=== PATIENT | female | born 1935 | race Caucasian/White ===

== ENCOUNTER 2017-02-26 19:57 | Inpatient (IN) ==
[2017-02-26] MEDS ORDERED: NS 2,000 ML ONE (20:16)
[2017-02-26] MEDS ORDERED: MOTRIN PO ONE (20:16)
[2017-02-26] MEDS ORDERED: MOTRIN ONE (20:16)
[2017-02-26] MEDS ORDERED: MOTRIN LIQUID ONE (20:22)
[2017-02-26] MEDS ORDERED: NS 500 ML IV ONE (20:25)
[2017-02-26] MEDS ORDERED: NS 1,000 ML IV ONE (20:25)
[2017-02-26] MEDS: NS 1,000 ML IV ONE (20:25)
[2017-02-26] MEDS ORDERED: ZOSYN 3.375 GM/NS 3.375 GM/50 ML IVPB IV ONE (20:25)
[2017-02-26 20:49] LABS: BASO% 0.3 % (0.0-0.8); EOS# 0.01 X1000 (0.0-0.7); EOS% 0.3 % (0.0-10.0); HEMATOCRIT 39.3 % (37.0-47.0); HEMOGLOBIN 13.2 g/dL (12.0-16.0); IMM GRAN# 0.03 X1000 (0.0-0.04); IMM GRAN% 0.8 % (0.0-0.5); LYMPH# 0.14 X1000 (1.2-3.4); LYMPH% 3.9 % (20.5-51.1); MANUAL DIFF NEEDED? YES; MCH 31.9 PG (27-31); MCHC 33.6 g/dL (33-37); MCV 94.9 FL (81-99); MONO# 0.01 X1000 (0.11-0.59); MONO% 0.3 % (1.7-9.3); MPV 9.9 FL (7.4-10.4); NEUT% 94.4 % (42.2-75.2); PLT 175 X1000 (130-400); RBC 4.14 XMIL (4.2-5.4)
[2017-02-26 20:50] LABS: LYMPHS 3 % (21-51); MONO 1 % (1-9)
[2017-02-26 20:58] LABS: AGAP 13; ALBUMIN 3.7 g/dL (3.5-5.0); ALKALINE PHOSPHATASE 79 U/L (32-104); BUN 20 mg/dL (8-22); CALCIUM 9.6 mg/dL (8.8-10.2); CHLORIDE 100 mmol/L (98-107); CK PROFILE 90 U/L (24-173); COSMO 282; GOT 27 U/L (10-30); GPT 19 U/L (10-36); POTASSIUM 3.2 mmol/L (3.5-5.1); SODIUM 137 mmol/L (136-145); TCO2 24 mmol/L (25-35); TOTAL PROTEIN 6.4 g/dL (6.3-8.3)
--- NOTE | 2017-02-26 21:00 | EKG Report ---
Test Performed on : 02/26/2017 8:40:55 PM Test Reason : CP Blood Pressure : / mmHG Vent. Rate : 108 BPM Atrial Rate : 108 BPM P-R Int : 160 ms QRS Dur : 070 ms QT Int : 310 ms P-R-T Axes : 078 049 064 degrees QTc Int : 415 ms Sinus tachycardia. with premature atrial complexes. Possible Left atrial enlargement Borderline ECG No previous ECGs available Unconfirmed Result
[2017-02-26] MEDS ORDERED: VANCOMYCIN 1 GM/NS 1 GM/250 ML IVPB IV ONE (21:02)
[2017-02-26 21:09] LABS: INR 0.99 (0.86-1.15); PROTIME 13.9 Seconds (12.1-15.5)
[2017-02-26 21:10] LABS: PTT PL 25.2 Seconds (22.6-43.9)
--- NOTE | 2017-02-26 21:20 | Diag Imaging Result Doc PS360 ---
EXAM: CHEST-1 VIEW - 02/26/2017 HISTORY: fever TECHNIQUE: Portable chest 8:36 PM COMPARISON: None. FINDINGS: Heart size appears upper normal. There is apparent mild infrahilar infiltrate on the left. The remainder lungs appear clear. There is no substantial pleural effusion or pneumothorax identified. IMPRESSION: Apparent mild infrahilar infiltrate on the left. Bronchopneumonia cannot be excluded. Electronically signed by Cyrus Oneill 02/26/2017 9:18 PM
--- NOTE | 2017-02-26 21:21 | PROVIDER DOCUMENTATION ---
This chart was entered by Mayra Petty Scribe, acting as scribe for Nasir Asencio MD. HPI-General Adult - General Chief Complaint: Weakness Stated Complaint: weakness Time Seen by Provider: 02/26/17 20:08 Source: family, RN/MD, EMS Allergies/Adverse Reactions: Patient Allergies Allergy/AdvReac Type Severity Reaction Status Date / Time Unable to Assess Allergy Verified 02/26/17 20:02 Home Medications: Home Medication List Medication Instructions Recorded Confirmed Last Taken Type NK [No Home Medications] 02/26/17 02/26/17 Unknown History - History of Present Illness -Gen Adult Nature of Presenting Problems: 81 Y/O F presents to ER by EMS with the complain of feeling weak. pt has Hx of Dementia and MS. pt was unable to standup at home after being the restroom. pt has fever and diarrhea. Location of Pain/Injury: reports: other (whole body weakness) Onset/Duration: reports: just prior to arrival Timing: reports: still present Associated Symptoms: reports: diarrhea, fever/chills, weakness Review of Systems - Adult - REVIEW OF SYSTEMS - ADULT Constitutional: reports: fever, other (generalized body weakness). denies: chills Eyes: reports: no symptoms reported Ears, Nose, Mouth & Throat: reports: no symptoms reported Cardiovascular: reports: no symptoms reported Respiratory: reports: no symptoms reported Gastrointestinal: reports: diarrhea. denies: nausea, vomiting Genitourinary: reports: no symptoms reported Musculoskeletal: reports: see HPI, other (generalized body weakness) Integumentary: reports: no symptoms reported Neurological: reports: no symptoms reported Psychiatric: reports: no symptoms reported Endocrine: reports: no symptoms reported Hematologic/Lymphatic: reports: no symptoms reported Allergic/Immunologic: reports: no symptoms reported All Other Systems: Reviewed and Negative Past History - Adult - PAST MEDICAL HISTORY-ADULT Review of Records: reports: Old Records Reviewed, Nursing Assessment Review, Medications Reviewed, Social history reviewed & non-contributory. Major Childhood Illnesses: reports: denies history Neurological: reports: dementia, Multiple Sclerosis - IMMUNIZATION STATUS Childhood Immunizations: See Nurse Assessment Flu Vaccine: See Nurse Assessment Physical Exam-General - PHYSICAL EXAM-ADULT Initial Vital Signs Reviewed: Yes - CONSTITUTIONAL General Appearance: mild distress, lethargic - EYES Eyes: PERRL/EOMI, pink conjunctivae - HEAD, EARS, NOSE, MOUTH & THROAT HENMT: normal ENT inspection, other (dry mucus memberanes) - NECK Neck: non-tender, full range of motion, supple - RESPIRATORY Respiratory: chest non-tender, lungs clear, normal breath sounds - CARDIOVASCULAR Cardiovascular: no edema, no gallop, tachycardia - GASTROINTESTINAL (ABDOMEN) Abdominal Exam: normal bowel sounds, non tender, soft - MUSCULOSKELETAL Back Exam: normal inspection, no CVA tenderness, no vertebral tenderness Extremity: swelling (bilat ankles). negative: no calf tenderness - SKIN Integumentary: normal color, normal turgor, warm/dry - NEUROLOGIC Neurologic: grossly normal, no motor/sensory deficits - PSYCHIATRIC Psych/Mental Status: normal mood/affect, oriented x 3 Progress - PLAN OF CARE/RESULTS Progress/Plan/Lab Results: Vital Signs - 8 hr 02/26/17 19:57 02/26/17 20:02 Temperature 103.7 F H Pulse Rate 117 H Respiratory Rate 16 25 H Blood Pressure 110/53 O2 Sat by Pulse Oximetry 91 L Orders Category Date Time Status Cardiac Monitoring DIRECTED Care 02/26/17 20:11 Active Arana Cath Insertion ORDERED Care 02/26/17 20:23 Active IV Insertion ORDERED Care 02/26/17 20:11 Active Intake and Output-Strict ORDERED Care 02/26/17 20:26 Active Notify MD of + Sepsis Screen NOW Care 02/26/17 20:11 Active Repeat Vital Signs .Blood Pressure Care 02/26/17 20:26 Active Repeat Vital Signs .Heart Rate Care 02/26/17 20:26 Active Repeat Vital Signs .Oxygen Saturation Care 02/26/17 20:26 Active Repeat Vital Signs .Respiratory Rate Care 02/26/17 20:26 Active Repeat Vital Signs .Temp Care 02/26/17 20:26 Active CHEST-1 VIEW [RAD] Stat Exams 02/26/17 20:24 Ordered BLOOD CULTURE [BLDCUL] Stat Lab 02/26/17 20:11 Uncollected CBC WITH DIFF [HEME] Stat Lab 02/26/17 20:11 Uncollected CK PROFILE [SP CHEM] Stat Lab 02/26/17 20:11 Uncollected COMPREHENSIVE METABOLIC PANEL [CHEM] Stat Lab 02/26/17 20:11 Uncollected LACTATE, PLASMA [CHEM] Stat Lab 02/26/17 20:11 Uncollected PROTIME WITH INR PL [COAG] Stat Lab 02/26/17 20:[address] [COAG] Stat Lab 02/26/17 20:11 Uncollected TROPONIN T Stat Lab 02/26/17 20:[address] W/POSS RFLX CULT [URINALYSIS] Stat Lab 02/26/17 20:11 Uncollected 0.9% Sodium Chloride Inj [Ns] 1,000 ml Med 02/26/17 20:16 Discontinued .ROUTE As Directed 0.9% Sodium Chloride Inj [Ns] 1,000 ml Med 02/26/17 20:17 Active IV 125 mls/hr 0.9% Sodium Chloride Inj [Ns] 1,000 ml Med 02/26/17 20:25 Discontinued IV As Directed 0.9% Sodium Chloride Inj [Ns] 500 ml Med 02/26/17 20:25 Active IV 999 mls/hr Ibuprofen [Motrin Liquid] Med 02/26/17 20:22 Discontinued 600 mg .ROUTE .STK-MED ONE Ibuprofen [Motrin] Med 02/26/17 20:16 Discontinued 600 mg .ROUTE .STK-MED ONE Ibuprofen [Motrin] Med 02/26/17 20:16 Discontinued 600 mg PO NOW ONE Piperacil/Tazobact 3.375 gm/Ns [Zosyn 3.375 gm/Ns] 50 Med 02/26/17 20:25 Ordered ml IV NOW Oxygen Device Stat Oth 02/26/17 20:11 Active Result Diagrams: 02/26/17 20:10 02/26/17 20:10 - EKG 1 Time of EKG reading by physician:: 20:40 EKG Read and Signed by:: Nasir Asencio EKG Interpretation (*Must complete 3 of following elements*): Abnormal Rate: 108 Rhythm: Sinus Tachycardia with premature atrial complexes Comments: Borderline ECG - XRAY 1 XRAY Study: Chest Impression: Abnormal (apparent mild infrahilar infiltrate on L. Bronchopneumonia can not be excluded) - CONSULTS/PCP/HOSPITALIST Notification #1 *Consult/PCP/Hospitalist*: Dr. Maki Time Discussed: 22:18 Reason/Comments: discussed about pt Consult Disposition: Admit Departure - Departure Date of Disposition Decision: 02/27/17 Time of Disposition Decision: 03:53 DIAGNOSIS: Septic shock, Sepsis secondary to UTI Dementia Qualifiers: Dementia type: Alzheimer's disease Alzheimer's disease onset: unspecified onset Dementia behavioral disturbance: with behavioral disturbance Qualified Code(s): G30.8 - Other Alzheimer's disease Disposition: ADMITTED INPATIENT 09 Certified Medical Emergency: Emergent Condition: Critical - Critical Care Note This patient required my direct & personal management of CC.: Yes Total Time (mins): 145 Critical Care Statement: This patient required my direct personal management to treat or rule out processes, the absence of which, could potentiallly result in sudden, clinically significant life or limb threatening deterioration. Attestation - Physician/ TORSTEN Attestation Patient care was provided by Advanced Practice Provider:: No The physician spent face to face time with patient:: Yes Advanced Practice Provider documentation review:: Supervising physician onsite and consulted in the evaluation and care of this patient. The physician did have a face to face encounter with the patient. This chart was documented by the indicated scribe, (Mayra Petty Scribe) and accurately reflects the services I performed and decisions made by me, Nasir Asencio MD, as attested by the provider's signature.
[2017-02-26] MEDS ORDERED: LEVOPHED ONE (21:53)
[2017-02-26 21:56] LABS: BILIRUBIN URINE NEGATIVE (NEGATIVE); BLOOD URINE 4+ (NEGATIVE); CLARITY VERY CLOUDY (CLEAR); COLOR YELLOW; LEUKOCYTES URINE 1+ (NEGATIVE); NITRITE URINE POSITIVE (NEGATIVE); PROTEIN URINE 1+(30 mg/dL) mg/dL (NEGATIVE); SP GRAVITY URINE 1.015; UROBILINOGEN URINE NORMAL
[2017-02-26 21:57] LABS: URINE CAST WHITE CELL PRESENT /LPF; URINE CULTURE PL NEEDED? YES; URINE EPITHELIAL CELLS <10 /HPF (<10)
[2017-02-26 21:58] LABS: URINE CRYSTAL NONE SEEN /HPF; URINE SOURCE CATH
[2017-02-26] MEDS ORDERED: LEVAQUIN 750 MG/D5W 750 MG/150 ML IVPB IV ONE (22:28)
[2017-02-26] MEDS ORDERED: VANCOMYCIN IV PER PHARMACY MISC SCH (22:30)
[2017-02-26] MEDS ORDERED: SOLU-CORTEF IV ONE (22:48)
[2017-02-26] MEDS ORDERED: MAXIPIME 1 GM/NS 1 GM/50 ML IVPB IV ONE (23:00)
[2017-02-26] MEDS ORDERED: MAXIPIME 1 GM/D5W 1 GM/50 ML IVPB IV ONE (23:00)
[2017-02-26] MEDS ORDERED: VANCOMYCIN 500 MG/NS 500 MG/100 ML IVPB IV ONE (23:00)
[2017-02-27] MEDS ORDERED: NS 1,000 ML ONE (00:34)
[2017-02-27] MEDS: NS 1,000 ML IV ONE (00:36)
[2017-02-27] MEDS: LEVOPHED 8 MG in D5 1/2 NS 250 ML IV SCH ×4 (00:38→22:25)
[2017-02-27] MEDS: VANCOMYCIN 1 GM/NS 1 GM/250 ML IVPB IV SCH ×2 (02:44→23:17)
[2017-02-27] MEDS ORDERED: MAXIPIME 1 GM/D5W 1 GM/50 ML IVPB IV ONE (03:00)
[2017-02-27] MEDS ORDERED: VANCOMYCIN 500 MG/NS 500 MG/100 ML IVPB IV ONE (03:00)
[2017-02-27] MEDS ORDERED: NS 100 ML ONE (03:02)
[2017-02-27] MEDS: SOLU-CORTEF IV SCH ×3 (05:09→22:25)
[2017-02-27] MEDS ORDERED: MAXIPIME 1 GM/NS 1 GM/50 ML IVPB IV SCH ×2 (11:00)
[2017-02-27] MEDS: MAXIPIME 1 GM/NS 1 GM/50 ML IVPB IV SCH (14:27)
[2017-02-27 17:11] LABS: HEMATOCRIT 36.3 % (37.0-47.0); HEMOGLOBIN 12.3 g/dL (12.0-16.0); MCH 31.9 PG (27-31); MCHC 33.9 g/dL (33-37); MCV 94.3 FL (81-99); MPV 9.9 FL (7.4-10.4); RBC 3.85 XMIL (4.2-5.4)
[2017-02-27] MEDS: ZOSYN 3.375 GM/NS 3.375 GM/50 ML IVPB IV SCH ×2 (17:18→22:25)
[2017-02-27 17:34] LABS: CALCIUM 7.9 mg/dL (8.8-10.2); POTASSIUM 3.5 mmol/L (3.5-5.1); TOTAL BILIRUBIN 0.4 mg/dL (0.20-1.00); TOTAL PROTEIN 5.8 g/dL (6.3-8.3)
[2017-02-28] MEDS: MAXIPIME 1 GM/NS 1 GM/50 ML IVPB IV SCH (02:40)
[2017-02-28] MEDS: ZOSYN 3.375 GM/NS 3.375 GM/50 ML IVPB IV SCH ×3 (05:03→19:15)
[2017-02-28] MEDS: SOLU-CORTEF IV SCH ×3 (05:03→22:20)
[2017-02-28] MEDS: LEVOPHED 8 MG in D5 1/2 NS 250 ML IV SCH (08:58)
[2017-02-28] MEDS ORDERED: LEVOPHED 8 MG in D5 1/2 NS 250 ML IV PRN (15:38)
[2017-02-28 15:40] LABS: AGAP 8; ALBUMIN 2.9 g/dL (3.5-5.0); ALKALINE PHOSPHATASE 50 U/L (32-104); BUN 24 mg/dL (8-22); CALCIUM 8.1 mg/dL (8.8-10.2); CHLORIDE 108 mmol/L (98-107); COSMO 287; GOT 34 U/L (10-30); GPT 44 U/L (10-36); POTASSIUM 3.5 mmol/L (3.5-5.1); SODIUM 141 mmol/L (136-145); TCO2 24 mmol/L (25-35); TOTAL PROTEIN 5.4 g/dL (6.3-8.3)
[2017-02-28 15:41] LABS: BASO% 0.1 % (0.0-0.8); HEMATOCRIT 33.3 % (37.0-47.0); HEMOGLOBIN 11.2 g/dL (12.0-16.0); IMM GRAN# 1.99 X1000 (0.0-0.04); LYMPH# 0.85 X1000 (1.2-3.4); LYMPH% 3.9 % (20.5-51.1); MCH 31.7 PG (27-31); MCHC 33.6 g/dL (33-37); MCV 94.3 FL (81-99); MONO# 0.91 X1000 (0.11-0.59); MONO% 4.1 % (1.7-9.3); MPV 10.8 FL (7.4-10.4); NEUT% 82.9 % (42.2-75.2); PLT 127 X1000 (130-400); RBC 3.53 XMIL (4.2-5.4)
[2017-02-28 15:42] LABS: MANUAL DIFF NEEDED? YES
[2017-02-28 16:16] LABS: BANDS 26 % (0-1); LYMPHS 7 % (21-51); MONO 2 % (1-9)
--- NOTE | 2017-02-28 17:11 | Diag Imaging Result Doc PS360 ---
EXAM: US ABDOMEN-COMPLETE HISTORY: sepsis TECHNIQUE: COMPARISON: None. FINDINGS: No aneurysmal dilatation to the abdominal aorta. Normal inferior vena cava. Normal pancreatic head and body. Pancreatic tail is obscured. No focal hepatic abnormality. Trace fluid about the liver. There are multiple echogenic foci within the gallbladder movement and shadowing consistent with stones. The gallbladder wall is not thickened. The common bile duct measures 5 mm. Normal left kidney. No hydronephrosis. The spleen is not enlarged. There is a tiny left renal cyst. IMPRESSION: 1.Cholelithiasis 2.Trace fluid about the liver 3.Small left renal cyst Electronically signed by Kayden Cuadra 02/28/2017 5:09 PM
--- NOTE | 2017-02-28 20:30 | CONSULTATION ---
DATE OF CONSULTATION: 02/28/2017 REQUESTING PHYSICIAN: Brett Smith MD. REQUEST FOR CONSULTATION: Possible cholecystitis. HISTORY OF PRESENT ILLNESS: An 81-year-old, female with baseline dementia and multiple sclerosis presenting initially on 02/27/2017 after a fall by report at [facility] [employer] She was admitted to the hospital for a diagnosis of septic shock initially secondary to a urinary tract infection. She was found to have leukopenia of 3.5 and also found to have positive blood cultures for gram- negative rods. During the process of being admitted she was started on Levophed and resuscitated. She subsequently developed some right-sided flank pain. The patient's dementia is somewhat altered in her ability to give me for full details. She now reports having no pain. She did have an ultrasound that did not show a significant amount of disease burden besides stones in her gallbladder. Again at this point it is not hurting. She was started on vancomycin and Zosyn to cover the positive blood cultures. She also had gram-negative rods in her urine. Given her complaint of right- sided pain I was asked to evaluate the patient again at this time. She denied any kind of pain. PAST MEDICAL HISTORY: Dementia and multiple sclerosis. PAST SURGICAL HISTORY: The patient does have 2 scars on her abdomen. She is unable to give me full details of what the surgeries were at this time. MEDICATIONS: Reviewed in [facility]. ALLERGIES: None. SOCIAL HISTORY: Lives at home. FAMILY HISTORY: Reviewed with patient and noncontributory. REVIEW OF SYSTEMS: A full 10 point review of systems was obtained and negative as specified in HPI. PHYSICAL EXAMINATION: Vital Signs: The patient is currently afebrile. Her vital signs are stable. She is off pressors. General Examination: No acute distress. Alert, interactive, some confusion. HEENT: Normocephalic, atraumatic. Pupils equal, round, reactive to light. Mucous membranes moist. Oropharynx benign. Neck: Supple. Trachea midline. Cardiovascular: Regular rate and rhythm. Lungs: Grossly clear. Abdomen: Soft, nontender, nondistended at this time. Extremities: Moves all extremities. Neurologic: Grossly intact. Skin: No signs of jaundice. Vascular: All extremities perfused. LABORATORY: White blood cell count this morning is 22,000, hematocrit 33, platelet count 127,000. Remainder of labs reviewed. Bilirubin is normal. AST and ALT are slightly elevated. Alkaline phosphatase is normal. Microbiology: Gram-negative rods in both urine and blood. Ultrasound report reviewed and noted above with no acute findings. ASSESSMENT/PLAN: An 81-year-old, female with multiple medical comorbidities including dementia and multiple sclerosis presenting now with sepsis. 1. Dementia at this time is currently at her baseline. We will continue to follow. 2. Sepsis. At this time I suspect it is likely related to her urinary tract infection, possibly pyelonephritis. She is on appropriate antibiotics. She has gram-negative rods growing at this point in both her blood and urine. I suspect if this continues its course we can probably stop her vancomycin. At this time given her leukocytosis I suspect that if she did have an issue with her gallbladder that it would be more prominent on ultrasound, it is not currently so I recommend just nonoperative management. Continue with resuscitation, IV fluids and IV antibiotics. 3. I did discuss this with Dr. Smith over the phone. I will continue to follow with you. I appreciate the consultation. cc: MD Brett Garcia MD
[2017-02-28] MEDS: VANCOMYCIN 1 GM/NS 1 GM/250 ML IVPB IV SCH (23:03)
[2017-03-01] MEDS: ZOSYN 3.375 GM/NS 3.375 GM/50 ML IVPB IV SCH ×4 (00:26→19:40)
--- NOTE | 2017-03-01 05:24 | PROGRESS NOTE ---
DATE: 03/01/2017 SUBJECTIVE: No major issues reported by the nursing staff. Patient denies any abdominal pain at this point. OBJECTIVE: Vital Signs: Patient is currently afebrile. Her vital signs have been stable. General: No acute distress. Resting comfortably. HEENT: Normocephalic atraumatic. Pupils equal, round, reactive to light. Mucous membranes moist. Oropharynx benign. Neck: Supple. Trachea midline. Cardiovascular: Regular rate and rhythm. Lungs: Grossly clear. Abdomen: Soft, nontender, nondistended. Extremities: Moves all extremities. Neurologic: Grossly intact. Skin: No signs of jaundice. Vascular: All extremities perfused. LABORATORY: None this morning. ASSESSMENT/PLAN: An 81-year-old female with bacteremia, rule out cholecystitis. 1. Dementia. At this time, stable. 2. Sepsis. At this time, she had she does have bacteremia and leukocytosis, and she was previously on pressors. She is off pressors. She is still on antibiotics. The source was likely her urine. We will continue to monitor. I do not think that her gallbladder is the source of this bacteremia. cc: MD Brett Garcia MD
[2017-03-01] MEDS: SOLU-CORTEF IV SCH ×3 (06:17→23:00)
[2017-03-02] MEDS: ZOSYN 3.375 GM/NS 3.375 GM/50 ML IVPB IV SCH ×2 (01:00→06:06)
[2017-03-02] MEDS: SOLU-CORTEF IV SCH (05:46)
[2017-03-02 06:40] LABS: AGAP 10; ALBUMIN 2.8 g/dL (3.5-5.0); ALKALINE PHOSPHATASE 69 U/L (32-104); BUN 32 mg/dL (8-22); CALCIUM 8.5 mg/dL (8.8-10.2); CHLORIDE 109 mmol/L (98-107); COSMO 296; GOT 14 U/L (10-30); GPT 33 U/L (10-36); POTASSIUM 3.4 mmol/L (3.5-5.1); SODIUM 141 mmol/L (136-145); TCO2 22 mmol/L (25-35); TOTAL PROTEIN 5.4 g/dL (6.3-8.3)
[2017-03-02 06:45] LABS: BASO% 0.1 % (0.0-0.8); EOS# 0.01 X1000 (0.0-0.7); EOS% 0.1 % (0.0-10.0); HEMATOCRIT 33.7 % (37.0-47.0); HEMOGLOBIN 11.3 g/dL (12.0-16.0); IMM GRAN# 0.04 X1000 (0.0-0.04); IMM GRAN% 0.3 % (0.0-0.5); LYMPH# 0.87 X1000 (1.2-3.4); LYMPH% 5.6 % (20.5-51.1); MANUAL DIFF NEEDED? YES; MCH 31.6 PG (27-31); MCHC 33.5 g/dL (33-37); MCV 94.1 FL (81-99); MONO# 0.44 X1000 (0.11-0.59); MONO% 2.8 % (1.7-9.3); MPV 12.2 FL (7.4-10.4); NEUT% 91.1 % (42.2-75.2); PLT 126 X1000 (130-400); RBC 3.58 XMIL (4.2-5.4)
--- NOTE | 2017-03-02 07:50 | PROGRESS NOTE ---
DATE: 03/02/2017 SUBJECTIVE: No major issues. The patient is clinically doing well. She did have Escherichia coli grow out of a blood culture and out of a urine culture. OBJECTIVE: Vital Signs: The patient is currently afebrile. Her vital signs are stable. General: No acute distress. HEENT: Normocephalic, atraumatic. Pupils equal, round, reactive to light. Mucous membranes moist. Oropharynx benign. Neck: Supple. Trachea midline. Cardiovascular: Regular rate and rhythm. Lungs: Grossly clear. Abdomen: Soft, nontender, nondistended. Extremities: Moves all extremities well. Neurologic: Grossly intact. Skin: No signs of jaundice. Vascular: All extremities perfused. LABORATORY DATA: White blood cell count is 15, hematocrit 33, platelet count 126,000. LFTs within normal limits. Alkaline phosphatase within normal limits. Microbiology as noted above. ASSESSMENT AND PLAN: An 81-year-old female with bacteremia. 1. Dementia. At this time, stable. 2. Bacteremia. At this time, she is on antibiotics. I do not think that her gallbladder is the source of this. She also has Escherichia coli in her urine, which I suspect is the cause of this, and that she has urosepsis. She is on antibiotics. I agree with that. From a surgical standpoint, will just monitor her, and I will be available if needed. cc: MD Brett Garcia MD
[2017-03-02 08:10] LABS: BANDS 5 % (0-1); LYMPHS 9 % (21-51); METAMYELOCYTES 3 %
[2017-03-02] MEDS: LEVAQUIN PO SCH (14:45)
[2017-03-02] MEDS: NS 1,000 ML IV SCH (14:45)
[2017-03-02] MEDS: PREDNISONE PO SCH (20:11)
[2017-03-03] MEDS: NS 1,000 ML IV SCH ×2 (00:44→10:20)
[2017-03-03 09:25] LABS: MANUAL DIFF NEEDED? NO
[2017-03-03 09:27] LABS: BASO% 0.2 % (0.0-0.8); EOS# 0.23 X1000 (0.0-0.7); EOS% 2.2 % (0.0-10.0); HEMOGLOBIN 12.5 g/dL (12.0-16.0); LYMPH% 13.3 % (20.5-51.1); MCH 31.7 PG (27-31); MCHC 33.8 g/dL (33-37); MCV 93.9 FL (81-99); MONO# 0.73 X1000 (0.11-0.59); MPV 11.3 FL (7.4-10.4); NEUT% 76.3 % (42.2-75.2); PLT 114 X1000 (130-400); RBC 3.94 XMIL (4.2-5.4)
[2017-03-03] MEDS: LEVAQUIN PO SCH (10:20)
[2017-03-03] MEDS: PREDNISONE PO SCH (10:20)
[2017-03-03 17:19] VITALS: BP 148/72
--- NOTE | 2017-03-30 06:27 | HISTORY AND PHYSICAL ---
HISTORY OF PRESENT ILLNESS: The patient was seen in the ER on 02/26/2017 and was admitted from the ER. On initial presentation she was complaining about just generalized weakness with a background history of multiple sclerosis and mild dementia. This 81-year-old lady was feeling weak. Family noted that she was unable to stand up at home after being to the restroom, has had some fever, chills, and some diarrhea. In the ER, she was seen by Dr. Asencio who evaluated her and felt that she had an infection. She had a white count of 3550. Her hematocrit was 39. Platelet count was 175. Her EKG showed a sinus tachycardia. He saw what he thought to be a mild infrahilar infiltrate suggestive of bronchopneumonia and thought she also had a urine that looked to be grossly infected. Her temperature was 103.7, pulse was 117, respiratory rate was 25, blood pressure 110/53, O2 saturation was 91. He felt that she needed to be admitted. He gaurang some blood cultures and routine laboratories, set up a urine culture, gave her in the ER some ibuprofen, piperacillin, tazobactam, normal saline, and admitted her to the floor. ALLERGIES: She has no allergies. HOME MEDICATIONS: There are no known home medications. REVIEW OF SYSTEMS: Constitutional: She has been having a fever, generalized weakness. No chills. Eyes: No visual changes, field cuts or irritation. Ears, nose, and throat: No sinusitis, otitis or pharyngitis. Cardiovascular: She denies any chest pain, tachycardia, PND, orthopnea, significant edema, palpitations. Respiratory: No cough, wheeze, shortness of breath, phlegm production, hemoptysis, pleurisy. Gastrointestinal: She has had some diarrhea but no nausea, vomiting, no blood or black stools. Genitourinary: She likewise denied any symptoms of dysuria, hematuria, polyuria, pyuria. Musculoskeletal: She has generalized body weakness superimposed on her multiple sclerosis. Skin: No rashes. No cellulitis. PHYSICAL EXAMINATION: GENERAL: She was mildly distressed, slightly lethargic. VITAL SIGNS: HEENT: PERRL. Extraocular movements intact. Sclerae and conjunctivae clear. Nares patent. Oropharynx with dry mucous membranes. Tongue was coated. NECK: Nontender. Supple. Full range of motion. RESPIRATORY: Chest was nontender. Bilateral lung sounds. CARDIOVASCULAR: She had a regular rhythm and rate. Tachycardia. Otherwise negative. ABDOMEN: Soft. No hepatosplenomegaly. No CVA tenderness. EXTREMITIES: Negative for clubbing, cyanosis or edema. She had some mild swelling around her ankles. SKIN: Clear. NEUROLOGIC: Exam was intact. She had no focal deficits. She was oriented to time, person, and place. ASSESSMENT: She was admitted as a probably urinary sepsis with a background of multiple sclerosis and dementia. cc: Brett Smith MD
--- NOTE | 2017-03-31 17:36 | DISCHARGE SUMMARY ---
ADMISSION DATE: 02/27/2017 DISCHARGE DATE: 03/03/2017 HISTORY OF PRESENT ILLNESS: This is a patient of mine who I see very irregularly. She is 81. She has multiple sclerosis and mild dementia. I have been seeing her for some period of time. Recently she presented to the emergency room feeling weak, unable to get up and stand up at home after going to the restroom. She had some fever and chills associated some diarrhea. She presented to the ER where she was seen by Dr. Asencio who felt that she had an infection and possible sepsis. She had a white count of 3550, hematocrit 39, platelet count 175,000. EKG shows sinus tachycardia. Chest x-ray plus-minus infiltrate. Urine that looked grossly infected. At the time of her presentation she had 103.7 temp, pulse was 117, respiratory rate 25, blood pressure 110/53, O2 saturation 91. Cultures were drawn and she was admitted to the hospital for treatment of possible sepsis and started on ibuprofen, Pipracil, tazobactam, and fluid rehydration with normal saline. During this stay her microbiology revealed positive urine culture for E. coli and blood culture positive for E. coli. Her initial white count was 3550, subsequent white count the following day was We followed her white count serially. By 03/03 her white count was down to 10,490, hematocrit was 39 on admission. With fluid resuscitation it went down to approximately 37. Platelet count was normal initially and somewhat low at 126, 114. Her differentials were generally a left shift. Her chemistries on admission showed she had a BUN of 20, creatinine 0.8, GFR greater than 60, glucose was 203, plasma lactate level is 3.9, troponin level was normal, CK likewise was normal. Electrolytes: Sodium is 137, potassium 3.2, chloride 100, CO2 24, BUN 20, creatinine 0.8. We followed those serially. She had some mild transient elevation of her transaminases and a steady decline in her albumin due to poor nutritional intake. It dropped from 3.7 to 2.8. Her urine on admission was 4+ blood, positive nitrites, 10-20 RBCs, 1+ white cells, 10-20 WBCs, 2+ bacteria, 3+ glucose. IMAGING STUDIES: Chest x-ray showed an apparent mild infrahilar infiltrate on the left. Bronchopneumonia could not be excluded. The heart size was upper limits of normal. Otherwise negative. She had an ultrasound of her abdomen which showed that she had no aneurysmal dilatation of the abdominal aorta, normal inferior vena cava, normal pancreatic head and body, pancreas tail was obscured. No focal hepatic abnormality. Trace fluid about the liver. There were multiple echogenic foci within the gallbladder movement and shadowing consistent with stones, however, the gallbladder wall was not thickened. She was tender and had a positive Oliva sign on that side. Her EKG is sinus tachycardia with premature atrial complexes, otherwise negative. HOSPITAL COURSE: She was admitted and placed on antibiotic therapy. Cultures substantiated that she was indeed septic. She was treated for her sepsis. She was placed on levofloxacin, fluid resuscitation with normal saline, Motrin for fever. She was also placed on Zosyn, vancomycin. During this day we had to use a small amount of Levophed to control her blood pressure. She was also given a dose of 100 Solu-Cortef. We subsequently switched her antibiotics to vancomycin and cefepime along with the steroids. She recovered and was weak. We walked her around. She needed quite a bit of assistance but was generally anxious to go home. We sent her home on p.o. antibiotics. We will follow her up in the office. cc: Brett Smith MD
== END 2017-03-03 16:45 | disposition home health service (06) ==
LOC: P.ED 19:57 → P.ICU 02-27 00:04
PROVIDERS: ADMIT Internal Medicine; ATTEND Internal Medicine

== ENCOUNTER 2017-03-04 15:11 | Inpatient (IN) ==
--- NOTE | 2017-03-04 16:29 | Diag Imaging Result Doc PS360 ---
EXAM: CT THORAX W/O CONTRAST HISTORY: right rib pain TECHNIQUE: CT of the chest without contrast COMMENT: There is no evidence of pneumothorax. There are large bilateral pleural effusions. There is cholelithiasis. There is anasarca. There is ascites in the subphrenic space on the right. There are coronary calcifications particularly in the left anterior descending artery. There is compressive atelectasis in both lower lobes. There is a pleural-based nodule in the anterior lateral inferior left lower lobe on image 110 measuring less than 5 mm in diameter. There are degenerative changes in the thoracic spine. There is a fracture of the lateral right ninth rib IMPRESSION: Pleural effusions, atelectasis, and right ninth rib fracture. Electronically signed by Hussain Johnston 03/04/2017 4:27 PM
[2017-03-04] MEDS ORDERED: LEVAQUIN PO SCH (18:00)
[2017-03-04] MEDS ORDERED: LEVAQUIN PO ONE (19:19)
[2017-03-04 21:38] LABS: MANUAL DIFF NEEDED? NO
[2017-03-04 21:40] LABS: BASO% 0.1 % (0.0-0.8); EOS# 0.39 X1000 (0.0-0.7); EOS% 3.9 % (0.0-10.0); HEMATOCRIT 34.6 % (37.0-47.0); HEMOGLOBIN 11.6 g/dL (12.0-16.0); IMM GRAN# 0.15 X1000 (0.0-0.04); IMM GRAN% 1.5 % (0.0-0.5); LYMPH# 1.93 X1000 (1.2-3.4); LYMPH% 19.3 % (20.5-51.1); MCH 31.2 PG (27-31); MCHC 33.5 g/dL (33-37); MONO# 1.24 X1000 (0.11-0.59); MONO% 12.4 % (1.7-9.3); MPV 9.8 FL (7.4-10.4); NEUT% 62.8 % (42.2-75.2); PLT 163 X1000 (130-400); RBC 3.72 XMIL (4.2-5.4)
[2017-03-05 06:44] LABS: AGAP 8; ALBUMIN 2.5 g/dL (3.5-5.0); ALKALINE PHOSPHATASE 48 U/L (32-104); BUN 10 mg/dL (8-22); CALCIUM 8.2 mg/dL (8.8-10.2); CHLORIDE 105 mmol/L (98-107); COSMO 280; GOT 13 U/L (10-30); GPT 19 U/L (10-36); SODIUM 141 mmol/L (136-145); TCO2 28 mmol/L (25-35); TOTAL PROTEIN 4.8 g/dL (6.3-8.3)
[2017-03-05] MEDS ORDERED: LEVAQUIN PO SCH (09:00)
[2017-03-05] MEDS ORDERED: CALMOSEPTINE OINTMENT TOP PRN (10:15)
[2017-03-05] MEDS: TYLENOL PO PRN (11:02)
[2017-03-05] MEDS: LEVAQUIN PO SCH (17:25)
[2017-03-05] MEDS: KLOR-CON PO SCH (20:10)
[2017-03-06] MEDS: KLOR-CON PO SCH ×3 (05:57→18:34)
[2017-03-06 05:58] LABS: MANUAL DIFF NEEDED? NO
[2017-03-06 06:00] LABS: BASO% 0.2 % (0.0-0.8); EOS# 0.18 X1000 (0.0-0.7); EOS% 1.5 % (0.0-10.0); HEMATOCRIT 34.6 % (37.0-47.0); HEMOGLOBIN 11.8 g/dL (12.0-16.0); IMM GRAN# 0.12 X1000 (0.0-0.04); LYMPH% 14.9 % (20.5-51.1); MCH 32.2 PG (27-31); MCHC 34.1 g/dL (33-37); MCV 94.3 FL (81-99); MONO# 1.01 X1000 (0.11-0.59); MONO% 8.3 % (1.7-9.3); MPV 10.1 FL (7.4-10.4); NEUT% 74.1 % (42.2-75.2); PLT 181 X1000 (130-400); RBC 3.67 XMIL (4.2-5.4)
[2017-03-06 06:29] LABS: AGAP 8; ALBUMIN 2.5 g/dL (3.5-5.0); ALKALINE PHOSPHATASE 48 U/L (32-104); BUN 10 mg/dL (8-22); CALCIUM 8.2 mg/dL (8.8-10.2); CHLORIDE 104 mmol/L (98-107); COSMO 280; GOT 13 U/L (10-30); GPT 17 U/L (10-36); MAGNESIUM 1.6 mg/dL (1.5-2.7); POTASSIUM 3.4 mmol/L (3.5-5.1); SODIUM 140 mmol/L (136-145); TCO2 29 mmol/L (25-35); TOTAL PROTEIN 4.9 g/dL (6.3-8.3)
--- NOTE | 2017-03-06 17:12 | HISTORY AND PHYSICAL ---
HISTORY OF PRESENT ILLNESS: This patient is an infrequent patient of mine in the clinic. I have seen her only 3 or 4 times in the duration of our relationship. She recently presented to the hospital with weakness, fever and low blood pressure and was worked up and found to have what appeared to be pyuria and pyelonephritis, but at the same time experienced some right upper quadrant pain. An ultrasound was done showing gallstones but no catracho-inflammatory gallbladder issues, and she was hospitalized, placed on pressors, fluid resuscitation and antibiotics. Ultimately growing out E. coli in her urine and in her blood. She was followed in the hospital, became afebrile, initially had a low white count of 3000, then it was subsequently 35,000 and over the ensuing days, it dropped down to normal. Her need for pressor agent likewise dropped down for normal. She was feeling better, but she had some background of MS and had some issues ambulating, but could ambulate easily there in the hospital. So she was discharged home to home visiting nurses and home physical therapy. Her family was at home. She got off the couch and crawled into the bathroom and they found her crawling around in the bathroom. They had difficulties getting her up, so they brought her back to the hospital and asked that she be admitted or observed and hopefully get her in a assisted living/rehab kind of program. ALLERGIES: She has no known allergies. When she was admitted on the initial admission on 02/27, she had numerous evaluation procedures per ER physician. MEDICATIONS: No home medications. PAST MEDICAL HISTORY: She is 81 years old, she has had some mild dementia and. REVIEW OF SYSTEMS: General: She has had fever generalized body weakness superimposed on chronic body weakness. She denied any chills. Eyes: No change in vision. ENT: She denied any pharyngitis, otitis or sinusitis. Cardiovascular: She denies any chest pain, palpitations. He has some edema in her lower extremities. Respiratory: No cough, wheeze, she denied shortness of breath. Gastrointestinal: She had some diarrhea. No nausea, vomiting or GI blood loss. Genitourinary: She really had no symptoms to suggest an etiology of her fever. She had no symptoms of urinary tract infection. She denied any hematuria or polyuria. Musculoskeletal: General weakness. Skin: Negative, no rashes. Neurological: No focal deficits were appreciated. No headaches. Psychiatric: She was somewhat stoic and otherwise normal. Endocrine: No polyuria, polydipsia, polyphagia, heat or cold intolerance. Hematological: No bleeding or clotting disorders. PAST MEDICAL HISTORY: Dementia. Multiple sclerosis. PHYSICAL EXAMINATION: VITAL SIGNS: When she was here, she had a temperature of a 103.7 degrees, pulse was 117, respiratory was 25, blood pressure is 110/53. With her presenting symptoms in the ER, she was cultured up and she had a workup and was felt to be septic and she was admitted with septic shock. HEENT: So her head was normocephalic with some temporal wasting. Eyes were PERRLA. Sclerae were clear. Fundi not visualized. Nares intact. Oropharynx negative. NECK: Supple. Bounding carotids without thyromegaly. CHEST: Bilaterally clear breath sounds. CARDIOVASCULAR: Regular rhythm and rate. ABDOMEN: Soft. No hepatosplenomegaly. No CVA tenderness. EXTREMITIES: She has 1+ edema in her lower extremities. Pulses were intact. SKIN: Clear. NEUROLOGIC: No She was oriented times person, place and time. She has a background history of dementia. LABORATORY/DIAGNOSTICS: White count was 3550. EKG other than sinus tachycardia was basically normal. She is being readmitted to evaluate her generalized weakness after having been found crawling around in the house. So we did a chest x-ray because we were not sure when , she was complaining of her right side, and it revealed a fracture of the lateral right 9th rib, which may have been present previously when she was initially admitted when we were considering her gallbladder and right kidney. She also some mild fluid retention in her legs and in her pleural spaces on her x-ray compatible with her protein calorie malnutrition. ADMITTING DIAGNOSIS: Generalized weakness, recent urinary sepsis, history of multiple sclerosis, fracture 9th rib, asymptomatic gallstones. cc: Brett Smith MD
[2017-03-06] MEDS: LEVAQUIN PO SCH (18:34)
[2017-03-06 18:53] LABS: HEMATOCRIT 38.4 % (37.0-47.0); HEMOGLOBIN 12.9 g/dL (12.0-16.0); MCH 31.5 PG (27-31); MCHC 33.6 g/dL (33-37); MCV 93.7 FL (81-99); RBC 4.1 XMIL (4.2-5.4)
[2017-03-06 19:26] LABS: AGAP 7; ALBUMIN 3.2 g/dL (3.5-5.0); ALKALINE PHOSPHATASE 67 U/L (32-104); BUN 13 mg/dL (8-22); CALCIUM 9.1 mg/dL (8.8-10.2); CHLORIDE 101 mmol/L (98-107); COSMO 286; GOT 14 U/L (10-30); GPT 18 U/L (10-36); POTASSIUM 4.6 mmol/L (3.5-5.1); SODIUM 140 mmol/L (136-145); TCO2 32 mmol/L (25-35); TOTAL PROTEIN 5.8 g/dL (6.3-8.3)
[2017-03-06] MEDS: TYLENOL PO PRN (19:39)
[2017-03-07] MEDS: KLOR-CON PO SCH ×3 (04:24→21:18)
[2017-03-07 10:12] LABS: BILIRUBIN URINE NEGATIVE (NEGATIVE); BLOOD URINE NEGATIVE (NEGATIVE); CLARITY CLEAR (CLEAR); COLOR YELLOW; GLUCOSE URINE NEGATIVE (NEGATIVE); LEUKOCYTES URINE 2+ (NEGATIVE); NITRITE URINE NEGATIVE (NEGATIVE); PROTEIN URINE NEGATIVE (NEGATIVE); UROBILINOGEN URINE NORMAL
[2017-03-07 10:25] LABS: URINE CULTURE PL NEEDED? YES; URINE EPITHELIAL CELLS >10 /HPF (<10)
[2017-03-07 10:26] LABS: URINE SOURCE CLEAN CATCH
[2017-03-07 13:59] LABS: MANUAL DIFF NEEDED? NO
[2017-03-07 14:00] LABS: BASO% 0.3 % (0.0-0.8); EOS# 0.11 X1000 (0.0-0.7); EOS% 0.9 % (0.0-10.0); HEMOGLOBIN 11.9 g/dL (12.0-16.0); IMM GRAN# 0.06 X1000 (0.0-0.04); IMM GRAN% 0.5 % (0.0-0.5); LYMPH# 1.59 X1000 (1.2-3.4); LYMPH% 12.6 % (20.5-51.1); MCHC 33.1 g/dL (33-37); MCV 93.8 FL (81-99); MONO# 0.72 X1000 (0.11-0.59); MONO% 5.7 % (1.7-9.3); MPV 9.8 FL (7.4-10.4); PLT 241 X1000 (130-400); RBC 3.84 XMIL (4.2-5.4)
[2017-03-07 14:23] LABS: AGAP 7; ALBUMIN 3.1 g/dL (3.5-5.0); ALKALINE PHOSPHATASE 55 U/L (32-104); BUN 11 mg/dL (8-22); CALCIUM 8.7 mg/dL (8.8-10.2); CHLORIDE 103 mmol/L (98-107); COSMO 283; GOT 14 U/L (10-30); GPT 16 U/L (10-36); POTASSIUM 4.2 mmol/L (3.5-5.1); SODIUM 140 mmol/L (136-145); TCO2 30 mmol/L (25-35); TOTAL PROTEIN 5.2 g/dL (6.3-8.3)
--- NOTE | 2017-03-07 14:25 | Diag Imaging Result Doc PS360 ---
EXAM: CHEST-2 VIEWS HISTORY: cough fx rib TECHNIQUE: PA and lateral chest COMMENT: There are bilateral pleural effusions. This has worsened since the previous study of 02/26/2017. There is also atelectasis or pneumonia in both lower lobes again this is worse than on the previous study. IMPRESSION: Worsened bibasilar atelectasis and pleural effusions. Electronically signed by Hussain Johnston 03/07/2017 2:23 PM
--- NOTE | 2017-03-07 17:05 | CONSULTATION ---
DATE OF CONSULTATION: 03/07/2017 REASON FOR CONSULT: Dropped bladder. HISTORY OF PRESENT ILLNESS: Ms. Ramirez is an 81-year-old, 4 para 4, in the hospital which urosepsis, being treated by Dr. Smith. She is known to have longstanding prolapse of what is thought to be her bladder, and he has asked that I evaluate that. Upon speaking to Ms. Ramirez, she is alert and cooperative. She does not appear to be in any distress. Family is at her bedside and they all appear to be supportive. States that the bladder has been fallen for many years and she has just dealt with it. She has seen a physician in [place] for which she had surgery with mesh placement. She has been seen by Dr. Mccurdy and Dr. Almazan locally. She stated Dr. Almazan tried a pessary and she did not care for that. PAST MEDICAL HISTORY: Significant for multiple sclerosis that she has had for 40 years. Some question of Grave's disease; however, she is on no medication for either of these. PAST SURGICAL HISTORY: She has had a bowel obstruction x2 with resultant bowel resections. Daughter thinks it is small bowel. She has had a hysterectomy with bilateral salpingo- oophorectomy along with her bladder tack. She has had 4 pregnancies, 4 vaginal deliveries. She denies tobacco, alcohol or drug use. MEDICATIONS: On no chronic medications. ALLERGIES: No known drug allergies. SOCIAL HISTORY: Good family support. PHYSICAL EXAMINATION: Vital signs: Stable. She is afebrile. She is alert. Gynecological: Pertinent to her examination, she does have a prolapse of the vaginal mucosa. It appears to be a distal cystocele. I am able to reduce it. Good vaginal length. Tissue very hardened and dry. ASSESSMENT: Prolapsed cystocele with history of repair with mesh placement. PLAN: I agree with continuing treatment for urosepsis. Upon discharge, she is to make an appointment with Dr. Perera to evaluate the problem of the cystocele. cc: MD Brett Parry MD
[2017-03-07] MEDS: LEVAQUIN PO SCH (17:43)
[2017-03-08] MEDS: KLOR-CON PO SCH ×3 (04:20→20:04)
[2017-03-08 11:13] LABS: MANUAL DIFF NEEDED? NO
[2017-03-08 11:14] LABS: BASO% 0.2 % (0.0-0.8); EOS# 0.29 X1000 (0.0-0.7); EOS% 2.4 % (0.0-10.0); HEMATOCRIT 39.4 % (37.0-47.0); HEMOGLOBIN 12.9 g/dL (12.0-16.0); IMM GRAN% 0.8 % (0.0-0.5); LYMPH# 1.03 X1000 (1.2-3.4); LYMPH% 8.5 % (20.5-51.1); MCH 31.2 PG (27-31); MCHC 32.7 g/dL (33-37); MCV 95.2 FL (81-99); MONO% 6.6 % (1.7-9.3); NEUT% 81.5 % (42.2-75.2); PLT 196 X1000 (130-400); RBC 4.14 XMIL (4.2-5.4)
[2017-03-08 11:35] LABS: AGAP 9; ALBUMIN 3.4 g/dL (3.5-5.0); ALKALINE PHOSPHATASE 59 U/L (32-104); BUN 10 mg/dL (8-22); CHLORIDE 100 mmol/L (98-107); COSMO 282; GOT 23 U/L (10-30); GPT 20 U/L (10-36); POTASSIUM 4.2 mmol/L (3.5-5.1); SODIUM 139 mmol/L (136-145); TCO2 31 mmol/L (25-35)
[2017-03-08 12:38] LABS: HEMOGLOBIN A1C 6.5 % (4.8-6.0)
[2017-03-08] MEDS: TYLENOL PO PRN (16:12)
[2017-03-08] MEDS: LEVAQUIN PO SCH (18:51)
--- NOTE | 2017-03-08 20:53 | ECHO REPORT ---
ORDER DATE: 03/08/2017 INTERPRETING PHYSICIAN: Dr. Eric REQUESTING PHYSICIAN: CLINICAL INDICATIONS: Patient with shortness of breath, hypertension. M-MODE MEASUREMENTS: Right ventricle: 2.0 cm. Left ventricle end diastole: 3.8 cm. Left ventricle end systole: 1.9 cm. Posterior wall: 1.2 cm. Interventricular septum: 1.2 cm. Left atrium: 3.2 cm. Aortic root: 3.1 cm. SUMMARY OF 2-DIMENSIONAL IMAGING: The left ventricular function is normal. Ejection fraction 65-70%. No wall motion abnormality is noted. The right ventricle is normal. A left pleural effusion appears to be present. The atria appear to be normal. The aortic valve opens normally. There is some thickening. There is no stenosis or regurgitation. The mitral valve opens normally. Color flow mapping unremarkable. Pulse wave Doppler of mitral inflow shows mild reversal of the E and the A wave. Tissue Doppler of septal and lateral mitral annulus averages 6 cm per second. Pulmonary venous flow is normal. There is no diastolic dysfunction. The tricuspid valve looks normal. Color flow mapping unremarkable. Pulmonary pressure is normal at 44 mmHg. The pulmonic valve looks normal. Color flow mapping unremarkable. There is no pericardial effusion, masses or thrombus. IMPRESSION: In summary, this study shows: 1. Excellent left ventricular systolic function. 2. No diastolic dysfunction. 3. Pulmonary pressure of 44 mmHg. 4. No evidence of any significant valvular abnormality. 5. There is a left pleural effusion. Clinical correlation recommended. cc: MD Brett Reed MD
[2017-03-09] MEDS: KLOR-CON PO SCH ×2 (04:32→12:08)
[2017-03-09 11:46] VITALS: BP 125/94
--- NOTE | 2017-03-09 13:24 | DISCHARGE SUMMARY ---
ADMISSION DATE: 03/06/2017 DISCHARGE DATE: HISTORY AND HOSPITAL COURSE: Ms. Ramirez is a patient who had recently been hospitalized with urosepsis, background history of multiple sclerosis, and during her urosepsis hospitalizations, which turned out to be Escherichia coli sensitive to Levaquin, she was discovered to have a gallbladder that was full of stones without any evidence of catracho-inflammatory changes of the gallbladder to suggest cholecystitis. She had to be hospitalized, placed on pressors, received fluid resuscitation, and was subsequently discharged. She initially on her previous hospitalization for the urosepsis presented with a low white count of 3000. The following day it was 35,000, and over the ensuing days of antibiotic therapy, it normalized. Likewise, her need for pressor agents was normalized. She began feeling better. She had been in the hospital for 4 or 5 days during that hospital stay and felt kind of weak. She went home with home visiting nurses and home visiting physical therapist, and while her and daughter were in another room, she had been sitting on a couch and crawled to the bathroom. They could not get her up, and she presented again to the ER where she was discovered to have a fractured 9th rib, which may have been there previously and may have been the source of some of her right upper quadrant pain, right flank pain. So she was hospitalized to do some rehabilitation and treat her pain. While she was in the hospital, it came to our attention that she kept having what appeared to be pleural effusions bilaterally that really on further viewing did not significantly change. While she was in the hospital, it was discovered on her CT of her thorax that was done in the ER, which showed large bilateral pleural effusions, cholelithiasis, but also anasarca from her poor protein- calorie malnutrition, and there was some ascites in the subphrenic space, compressive atelectasis of both lower lobes. There were degenerative changes in the thoracic spine and the fractured right 9th rib. She also had some pleural-based nodule on the anterolateral inferior left lobe that was less than 5 mm. Her chest x-rays continued to show the effusion with no real significant change. She had elevated BNPs in the 1344 range. We really did not start her on diuretic therapy. She did have a little bit of peripheral edema, again, I think related to her hypoalbuminemia. Also, while she was here, we did a TSH. She was noted to be mildly elevated suggesting perhaps mild hypothyroidism. She has a low potassium that was corrected, and her urine started growing out something and just today is identified as yeast. While she was here, we also did an echocardiogram because of the effusions. She had an ejection fraction of 65% to 70%. No wall motion abnormalities. A left pleural effusion was present. She had excellent left ventricular systolic function. No diastolic dysfunction. No evidence of any significant valvular abnormality and a left pleural effusion. We think that with her appetite rallying up, we suspect that the ascites, pleural effusions, and peripheral edema may improve. We have not really given her a diuretic. Also, during this hospital stay, it was noted that she had mild elevations of her blood sugars with an A1c of 6.5. I think we may end up having to address this after we clear up some of these other problems. She is to go to a physical rehab facility, and we are going to start her on a little bit of levothyroxine. We are going to also start her on Diflucan for her yeast infection, and we will continue to observe her fluid status, perhaps changing her to some diuretic therapy. She is really not on any therapy other than the Levaquin. I think we are going to stop the Levaquin as she goes to the snf, and as she begins to eat, we will decide on what therapy to do about her diabetes. cc: Brett Smith MD
--- NOTE | 2017-03-13 15:55 | PROVIDER DOCUMENTATION ---
This chart was entered by Tiffanie Choi Scribe, acting as scribe for Brett Smith MD. HPI-Musculoskeletal Pain/Inj - GENERAL Chief Complaint: Flank Pain Stated Complaint: right flank pain Time Seen by Provider: 03/04/17 15:43 Source: patient Unable to obtain history due to:: other (Dementia) - HX OF PRESENT ILLNESS-MUSKULOSKELTAL Nature of Presenting Problem: 81 yo F with hx of MS and recent hospitalization for e. coli sepsis presents to ED with cc of R side pain. Pt has known hx of falling and was found on ground unable to get back up. Upon arrival to ED, pt is alert and in no apparent distress. Severity in ED: mild Onset/Duration: unsure Timing: still present Locality of Occurance: Home Recently seen or treated by another doctor?: Yes (Hospitalized for e. coli sepsis) - FALL INJURY Location of Pain/Injury: reports: chest (R side pain, possibly due to fall, unable to determine due to pt's dementia) Reason for Fall: reports: other (MS) Review of Systems - Adult - REVIEW OF SYSTEMS - ADULT Constitutional: reports: fatique. denies: chills, fever Eyes: reports: no symptoms reported. denies: discharge, blurred vision Ears, Nose, Mouth & Throat: reports: no symptoms reported. denies: ear pain, sinus problem Cardiovascular: reports: no symptoms reported. denies: chest pain, palpitations Respiratory: reports: no symptoms reported. denies: cough, shortness of breath Gastrointestinal: reports: no symptoms reported. denies: nausea, vomiting Genitourinary: reports: no symptoms reported. denies: discharge, hematuria Musculoskeletal: reports: other (R chest pain) Integumentary: reports: no symptoms reported. denies: hives, skin sores/ulcer Neurological: reports: loss of balance. denies: slurred speech, syncope Psychiatric: reports: no symptoms reported. denies: anxiety, depression Endocrine: reports: no symptoms reported. denies: cold intolerance, heat intolerance Hematologic/Lymphatic: reports: no symptoms reported. denies: lymphedema, swollen lymph nodes Allergic/Immunologic: reports: no symptoms reported. denies: allergic rhinitis , food allergy All Other Systems: Reviewed and Negative Past History - Adult - PAST MEDICAL HISTORY-ADULT Review of Records: reports: Old Records Reviewed, Nursing Assessment Review, Medications Reviewed, Social history reviewed & non-contributory. Major Childhood Illnesses: reports: denies history Neurological: reports: dementia, Multiple Sclerosis - IMMUNIZATION STATUS Childhood Immunizations: See Nurse Assessment Flu Vaccine: See Nurse Assessment Physical Exam-Injury Related - Physical Exam-Injury Related Initial Vital Signs Reviewed: Yes General Appearance: appears well, alert, no apparent distress Eyes: PERRL/EOMI, pink conjunctivae Head, Ears, Nose, Mouth & Throat: normocephalic/atraumatic, moist mucous membranes Neck: non-tender, full range of motion, supple Respiratory: lungs clear, normal breath sounds, rib tenderness (R side) Cardiovascular: normal peripheral pulses, regular rate, rhythm, no edema Abdominal Exam: non tender, soft Lymphatic: no adenopathy Back Exam: normal inspection Extremity: normal range of motion, non-tender, normal gait Integumentary: normal color, warm/dry, blanching Neurologic: grossly normal, no motor/sensory deficits Psych/Mental Status: normal mood/affect, normal thought content, normal thought process, oriented x 3 - Glascow Coma Score Best Eye Response ([place]): (4) open spontaneously Best Verbal Response (Sammie): (5) oriented Best Motor Response (Sammie): (6) obeys commands [place] Total: 15 Progress - PLAN OF CARE/RESULTS Progress/Plan/Lab Results: Orders Category Date Time Status Admit - [facility] Routine AdmDCTranf 03/04/17 18:07 Ordered Activity - Bed Rest with BRP ORDERED Care 03/04/17 18:07 Active Neurological Check Q4H Care 03/04/17 18:07 Completed Vital Signs Order Q 4-HR ASSESS Care 03/04/17 18:07 Active Social Service Consult Routine Cons 03/06/17 13:40 Active Regular Diet Diet 03/04/17 18:[address] THORAX W/O CONTRAST [CT] Stat Exams 03/04/17 15:56 Completed BNP [PRO B-NATRIURETIC PEPTIDE] Stat Lab 03/05/17 05:25 Completed CBC WITH DIFF [HEME] Routine Lab 03/06/17 05:20 Completed CBC WITH DIFF [HEME] Stat Lab 03/04/17 21:30 Completed CMP [COMPREHENSIVE METABOLIC PANEL] [CHEM] Stat Lab 03/05/17 05:25 Completed COMPREHENSIVE METABOLIC PANEL [CHEM] Routine Lab 03/06/17 05:20 Completed MAGNESIUM [CHEM] Routine Lab 03/06/17 05:20 Completed Acetaminophen [Tylenol] Med 03/05/17 10:40 Discontinued 650 mg PO Q4H PRN PRN Levofloxacin [Levaquin] Med 03/04/17 19:19 Discontinued 500 mg PO NOW ONE Levofloxacin [Levaquin] Med 03/05/17 18:00 Discontinued 500 mg PO Q24H Menthol/Zinc Oxide Ointment [Calmoseptine Ointment] Med 03/05/17 10:15 Discontinued 1 gm TOP PRN PRN Potassium Chloride E.r. [Klor-Con] Med 03/05/17 19:30 Discontinued 20 meq PO Q8H Physical Therapy Eval/Treatment [OM.PT] Routine Ther 03/06/17 08:07 Active Transfer/Admit Order [TRANSFER] Routine Transfer 03/04/17 18:05 Completed Result Diagrams: 03/08/17 11:07 03/08/17 11:07 - CT/MRI 1 CT Study: Thorax Impression: Abnormal (There is no evidence of pneumothorax. There are large bilateral pleural effusions. There is cholelithiasis. There is anasarca. There is ascites in the subphrenic space on the right. There are coronary calcifications particularly in the left anterior descending artery. There is compressive atelectasis in both lower lobes. There is a pleural-based nodule in the anterior lateral inferior left lower lobe on image 110 measuring less than 5 mm in diameter. There are degenerative changes in the thoracic spine. There is a fracture of the lateral right ninth rib) CT Results: Pleural effusions, atelectasis, and right ninth rib fracture--per radiology Departure - Departure Date of Disposition Decision: 03/04/17 Time of Disposition Decision: 16:00 DIAGNOSIS: Pleural effusion, Rib fracture Disposition: ADMITTED INPATIENT 09 Certified Medical Emergency: Emergent Condition: Stable - Critical Care Note This patient required my direct & personal management of CC.: No Attestation - Physician/ TORSTEN Attestation Patient care was provided by Advanced Practice Provider:: No The physician spent face to face time with patient:: Yes Advanced Practice Provider documentation review:: Supervising physician onsite and consulted in the evaluation and care of this patient. The physician did have a face to face encounter with the patient. This chart was documented by the indicated scribe, (Tiffanie Choi, Scribe) and accurately reflects the services I performed and decisions made by me, Brett Smith MD, as attested by the provider's signature.
== END 2017-03-09 16:20 ==
LOC: P.ED 15:11 → P.MEDSURG 15:11 → OBSVTOIN 18:11
PROVIDERS: ADMIT Internal Medicine; ATTEND Internal Medicine